=== PATIENT | female | born 1995 | race Caucasian/White ===

== ENCOUNTER → 2017-08-03 19:58 | Outpatient (CLI) | payer MEDICAID ==
[~2017-08-03 19:58] MED LIST: PRENAVITE1 TAB PO
[2017-08-03 21:12] LABS: APPEARANCE CLEAR (CLEAR); BILIRUBIN NEGATIVE (NEGATIVE); COLOR YELLOW (YELLOW); GLUCOSE NEGATIVE (NEGATIVE); KETONE NEGATIVE (NEGATIVE); NITRITE NEGATIVE (NEGATIVE); PROTEIN NEGATIVE (NEGATIVE); UROBILINOGEN NORMAL (NORMAL)
== END | disposition home or self-care (01) ==
LOC: D.LDO 19:58
PROVIDERS: Obstetrics & Gynecology
DX: O26.893 Other specified pregnancy related conditions, third trimester (principal); Z3A.37 37 weeks gestation of pregnancy; M54.9 Dorsalgia, unspecified

== ENCOUNTER → 2017-08-05 23:02 | Outpatient (CLI) | payer MEDICAID | END | disposition home or self-care (01) | LOC: D.LDO 23:02 | DX: O26.893 Other specified pregnancy related conditions, third trimester (principal); Z3A.37 37 weeks gestation of pregnancy ==

== ENCOUNTER 2017-08-14 20:01 | Outpatient (CLI) | payer MEDICAID ==
[2017-08-14] MEDS ORDERED: PRENAVITE1 TAB PO (20:12)
[2017-08-14 21:12] LABS: APPEARANCE HAZY (CLEAR); BILIRUBIN NEGATIVE (NEGATIVE); COLOR YELLOW (YELLOW); GLUCOSE NEGATIVE (NEGATIVE); KETONE NEGATIVE (NEGATIVE); NITRITE NEGATIVE (NEGATIVE); PH 7.5 (5.0-6.0); PROTEIN NEGATIVE (NEGATIVE); SPECIFIC GRAVITY 1.005 (1.005-1.020); UROBILINOGEN NORMAL (NORMAL)
[2017-08-14 21:15] LABS: BACTERIA MANY /hpf (NONE SEEN); HYALINE CAST RARE /lpf (NONE SEEN); RED CELLS - URINE 0-5 /hpf (0-5)
== END 2017-08-14 22:16 | disposition home or self-care (01) ==
LOC: D.LDO 20:01
PROVIDERS: Obstetrics & Gynecology
DX: O26.893 Other specified pregnancy related conditions, third trimester (principal); Z3A.38 38 weeks gestation of pregnancy; O36.8190 Decreased fetal movements, unspecified trimester, not applicable or unspecified

== ENCOUNTER → 2017-08-16 12:07 | Outpatient (CLI) | payer MEDICAID | END | disposition home or self-care (01) | LOC: D.LDO 12:07 | DX: O36.8130 Decreased fetal movements, third trimester, not applicable or unspecified (principal); Z3A.39 39 weeks gestation of pregnancy ==

== ENCOUNTER → 2017-08-19 12:18 | Outpatient (CLI) | payer MEDICAID | END | disposition home or self-care (01) | LOC: D.LDO 12:18 | DX: O36.8130 Decreased fetal movements, third trimester, not applicable or unspecified (principal); Z3A.39 39 weeks gestation of pregnancy ==

== ENCOUNTER → 2017-08-22 16:49 | Outpatient (CLI) | payer MEDICAID | END | disposition home or self-care (01) | LOC: D.LDO 16:49 | DX: O48.0 Post-term pregnancy (principal); Z3A.40 40 weeks gestation of pregnancy ==

== ENCOUNTER 2017-08-24 04:01 | Inpatient (IN) | payer MEDICAID ==
[~2017-08-24] VITALS: Ht 167.6 cm; Wt 78.5 kg
[2017-08-24 04:42] VITALS: BP 120/90; Ht 167.6 cm; Wt 78.5 kg
[2017-08-24 05:24] LABS: HEMATOCRIT 30.1 % (36.0-48.0); HEMOGLOBIN 9.2 g/dL (12-16); MCH 23.2 pg (26.0-34.0); MCHC 30.6 g/dL (31.0-37.0); MEAN PLATELET VOLUME 10.2 fL (7.4-10.4); RBC 3.96 10x6/uL (4.00-5.40); RDW 16.6 % (11.5-14.5); WBC 11.1 10x3/uL (4.8-10.8)
--- NOTE | 2017-08-24 14:32 | NUR ---
V/S ASSESSED ON INFANT PER THIS RN AT THIS TIME. PT AND FOB EDU ON KEEPING SWADDLED AND WARM. INFANT PLACED IN MOTHER'S ARMS AND BOTH COVERED. PT DENIES FURTHER NEEDS.
--- NOTE | 2017-08-24 15:05 | NUR ---
ICE PACK APPLIED TO PERINEUM, INFANT IN ARMS, DENIES NEEDS OR CONCERNS. FRIENDS/FAMILYN VISITING. C/L IN EASY REACH.
--- NOTE | 2017-08-24 15:15 | NUR ---
PT PROVIDED WITH TUCKS, EPIFOAM, AND DERMAPLAST SPRAY FOR PERICARE WHEN OOB TO VOID. INSTRUCTIONS GIVEN, PT VOICES UNDERSTANDING.
--- NOTE | 2017-08-24 16:10 | NUR ---
PT RESP EVEN AND UNLABORED, DENIES PAIN, ICE PACK IN PLACE TO PERINEUM. DENIES NEED TO VOID. PO FLUIDS GIVEN PER REQUEST. C/L IN EASY REACH.
--- NOTE | 2017-08-24 16:50 | NUR ---
PT OOB TO VOID, REINFORCED PERICARE AND USE OF TUCKS/DERMAPLAST. VOICES UNDERSTANDING OF TEACHING PROVIDED.
--- NOTE | 2017-08-24 16:52 | NUR ---
PT TRANSFERRED TO ROOM 1257 WITH PERSONAL BELONGINGS AND SO. ORIENTED TO ROOM AND TV. COLA PROVIDED UPON REQUEST. C/L IN EASY REACH.
--- NOTE | 2017-08-24 16:53 | NUR ---
PT TO ROOM 1257. EDU PT ON AMBULATION, PAIN MEDICATION AVAILABLE WHEN NEEDED, AND TO CONT PERICARE WITH BETADINE AND WATER AND TO PAT DRY DUE TO STITCHES IN PLACE. PT VERBALIZED UNDERSTANDING TO ALL. PT DENIES FURTHER NEEDS AND STATES "I'M JUST GOING TO WALK AROUND THE ROOM FOR A LITTLE WHILE. IT FEELS GOOD TO WALK." PT ASKS IF SHE CAN SIT ON COUCH, ADV PT THAT YES SHE CAN. PT DENIES FURTHER NEEDS. BED LOW, WHEELS LOCKED, CL IN REACH, SIDE RAILS UP X2.
--- NOTE | 2017-08-24 17:28 | NUR ---
PT RESTING IN BED, RESP EVEN AND UNLABORED, C/O LOW BACK AND ABDOMINAL CRAMPING TYPE PAIN, RATES 4 OUT OF 10 ON PAIN SCALE. MOTRIN PO GIVEN SCHEDULED, ENCOURAGED PO INTAKE. REPORTS HAS BEEN AMBULATORY IN ROOM, DENIES OTHER NEEDS AT THIS TIME, C/L IN EASY REACH, BED IN LOW POSITION, SR UP X2.
--- NOTE | 2017-08-24 18:05 | NUR ---
PT REPORTS PAIN 2 OUT OF 10 ON PAIN SCALE. FRESH ICED COLA PROVIDED UPON REQUEST AT THIS TIME. INFANT IN ARMS. NAD. C/L IN EASY REACH. NO OTHER NEEDS AT THIS TIME.
--- NOTE | 2017-08-24 18:05 | NUR ---
PT'S FOB TO NURSE DESK WITH REQUEST FOR "COKE" FOR PT. SAME PROVIDED PER Jerry ORTIZ RN.
[2017-08-24 19:10] VITALS: BP 111/67
--- NOTE | 2017-08-24 19:10 | NUR ---
PATIENT SITTING UP IN BED, AT BEDSIDE. FUNDUS FIRM,MIDLINE, AT THE U. BLEEDING SCANT. PERIPAD AND PANTIES IN PLACE. PT STATES THAT SHE HAS BEEN RUBBING HER STOMACH AND IT STAYS HARD. RESPIRATIONS EVEN AND NON LABORED. VITALS SIGNS WNL. TRAY TABLE AND CALL CARLISLE IN REACH. PT DENIES PAIN.
--- NOTE | 2017-08-24 20:30 | NUR ---
PATIENT SHOWERING, SOAP, WASHCLOTHES AND TOWELS PROVIDED. PT HAS PADS AND PANTIES, WILL WEAR HER OWN PAJAMAS. SIGNIFICANT OTHER REMAINS IN ROOM FOR ASSISTANCE. BLEEDING REMAINS SCANT.
--- NOTE | 2017-08-24 21:40 | NUR ---
PATIENT LAYING IN BED, INFANT IN CRIB AT BEDSIDE. REMAINS AT BEDSIDE. STATES THAT HER PAIN IS 4/10 IN HER BACK AND REQUESTS SOME PAIN MEDICATION. STATES THAT HER BLEEDING IS STILL LIGHT. DENIES OTHER NEEDS. CALL CARLISLE AND TRAY TABLE IN REACH, BED LOCKED IN LOW POSITION.
--- NOTE | 2017-08-24 21:41 | NUR ---
TYLENOL 3 TWO TABS PO AT THIS TIME PER MD ORDERS.
--- NOTE | 2017-08-24 21:56 | NUR ---
PATIENT SITTING UP IN BED, LAB AT BEDSIDE FOR RAPID HIV DRAW PER MD ORDERS. CYTOTEC 200 MCG PO ADMINISTERED AT THIS TIME. CALL CARLISLE AND TRAY TABLE IN REACH, BED LOCKED IN LOW POSITION. PT DENIES ANY NEEDS AT THIS TIME
--- NOTE | 2017-08-24 22:27 | OP ---
PATIENT NAME: RONALD MAGALLANES MEDICAL RECORD: [id number] :94 LOCATION:[id number] ADMISSION DATE:08/24/17 SURGEON: FADI WERNER MD DATE OF OPERATION: 08/24/2017 PREDELIVERY DIAGNOSIS: Active labor at term. POSTDELIVERY DIAGNOSIS: Mother delivered at term. PROCEDURE: Vaginal delivery. ATTENDING: Fadi Werner MD ANESTHETIC: Continuous lumbar epidural. FINDINGS: Viable male infant, RICARDO presentation, Apgars are 9 and 9, weight 3490 grams. Midline episiotomy cut with 3-0 chromic repair. Placenta spontaneous and intact. EBL: 350 cc. DISPOSITION: Mother and infant recovered in the room. TRANSINT:[id number] Voice Confirmation ID: [id number] DOCUMENT ID: [id number] FADI WERNER MD at 2227 CC: [id number] DICTATION DATE: 08/24/17 1014 MAINTENANCE INSTRUCTOR: 08/24/[address] [facility] [address] [place] [address]
--- NOTE | 2017-08-24 22:38 | NUR ---
PATIENT LAYING IN BED,NO DISTRESS NOTED. IN CRIB AT BEDSIDE. CALL CARLISLE AND TRAY TABLE IN REACH. PT INSTRUCTED TO CALL WITH ANY NEEDS.
[2017-08-24 22:47] LABS: HIV 1 & 2- RAPID SCREEN NEGATIVE (NEGATIVE)
--- NOTE | 2017-08-24 23:45 | NUR ---
INFANT TO ROOM FOR FEEDING AT THIS TIME. PATIENT DENIES ANY NEEDS.
--- NOTE | 2017-08-25 00:13 | NUR ---
PATIENT TRANSFERRED TO ROOM 1273. VS DONE. FUNDUS FIRM AND AT UMBILICUS. LOCHIA RUBRA AND SCANT. PATIENT DENIES PAIN AT THIS TIME. PATIENT ORIENTED TO ROOM AND CALL SYSTEM. BED IN LOW POSITION, SIDE RAILS UP X 2, CALL LIGHT WITHIN REACH. SIGNIFICANT OTHER AT BEDSIDE, REMAINS ATTENTIVE AND SUPPORTIVE OF PT NEEDS. NB REMAINS IN NBN. PATIENT DENIES ANY NEEDS OR CONCERNS.
--- NOTE | 2017-08-25 01:54 | NUR ---
PATIENT RESTING QUIETLY IN BED, IN DADS ARMS. CALL CARILSLE AND TRAY TABLE IN REACH. PT INSTRUCTED TO CALL WITH ANY NEEDS.
[2017-08-25 02:27] VITALS: BP 107/66
--- NOTE | 2017-08-25 02:27 | NUR ---
PATIENT RESTING IN BED, EASILY AROUSED TO VERBAL. VS TAKEN AND ICE WATER PROVIDED PER PT REQUEST. MOTRIN GIVEN PER MD ORDERS, SEE MAR. PT RATES PAIN 3/10 TO HER BACK. CALL CARLISLE AND TRAY TABLE IN REACH. INFANT REMAINS IN ROOM IN DADS ARMS AT THIS TIME. NO FURTHER NEEDS IDENTIFIED. PT ENCOURAGED TO CALL WITH ANY NEEDS. PT VERBALIZES UNDERSTANDING.
--- NOTE | 2017-08-25 02:30 | NUR ---
VITAL SIGNS TAKEN, WNL. FUNDUS REMAINS FIRM, BLEEDING SCANT. MOTRIN GIVEN PER MD ORDERS. SEE MAR.PT STATES THAT SHE HAS BACK PAIN 11/26. CALL CARLISLE AND TRAY TABLE IN REACH. ICE WATER PROVIDED PER PT REQUEST. PT DENIES OTHER NEEDS AT THIS TIME. INSTRUCTED TO CALL WITH ANY NEEDS.PT VERBALIZES UNDERSTANDING.
--- NOTE | 2017-08-25 02:44 | NUR ---
MARV HULL, BELLOWS FILLER BROUGHT UP TYLENOL #3 PRN MEDICATION FOR PATIENT. PATIENT RATES PAIN 02/26. PRN TYLENOL #3 ADMINISTERED PO. SIDE RAILS UP X 2, BED IN LOW POSITION, CALL LIGHT WITHIN REACH. MOTHER HOLDING INFANT AT THIS TIME. SIGNIFICANT OTHER AT BEDSIDE, SUPPORTIVE AND ATTENTIVE TO PT NEEDS. PATIENT DENIES ANY FURTHER NEEDS AT THIS TIME.
--- NOTE | 2017-08-25 03:45 | NUR ---
PATIENT SITTING UP ON COUCH. FATHER OF THE BABY CHANGING BABIES DIAPER. DENIES NEEDS OR PAIN AT THIS TIME. STATES THAT HER FEET FEEL A LITTLE SWOLLEN. NO VISUAL SWELLING NOTED AT THIS TIME. PT WITH FEET PROPPED UP AND ENCOURAGED TO KEEP THEM THERE IF THEY FEEL SWOLLEN. CALL CARLISLE AND TRAY TABLE IN REACH. PT INSTRUCTED TO CALL WITH ANY NEEDS.
[2017-08-25 06:15] LABS: RAPID PLASMA REAGIN Non Reactive (Non Reactive)
--- NOTE | 2017-08-25 07:00 | NUR ---
REPORT GIVEN TO AM SHIFT TO ASSUME PATIENT CARE.
[2017-08-25 08:00] VITALS: BP 109/70
--- NOTE | 2017-08-25 08:00 | NUR ---
AM ASSSESSMENT COMPLETED CHARTED ON FLOWSHEET ALONG WITH VITAL SIGNS. PT SITTING ON SIDE OF BED EATING BREAKFAST WITH INFANT IN CRIB AT BEDSIDE. RATES PAIN AT 4/10 AND REQUEST PAIN MED IF POSSIBLE. DENIES CLOTS WITH VOIDS WITH ASKED AND STATES HER BLEEDING IS LESS THAN HER PERIOD. CALL LIGHT IN REACH AND WHITEBOARD IN ROOM UPDATED.
--- NOTE | 2017-08-25 08:30 | NUR ---
PAIN MED GIVEN CHARTED ON EMAR. ADDITIONAL WAQAR PAD/PANTIES PLACED IN BATHROOM PER PT REQUEST. SALINE LOCK FROM LEFT AC REMOVED WITH CATH INTACT. LARGE ICE WITH APPLE JUICE ALSO PROVIDED PER PT REQUEST.
--- NOTE | 2017-08-25 11:00 | NUR ---
PT AND SIG OTHER AMB TO UNIT DESK THAN TO NURSERY AND BACK TO ROOM WITH INFANT. PT STATES THAT SHE FEELS "MUCH BETTER" AND DENIES ANY NEEDS.
--- NOTE | 2017-08-25 12:30 | NUR ---
LARGE CUP OF ICE PER REQUEST. PT QUESTIONS ABOUT DISCHARGE PROVIDED HER WITH NUMBER TO CALL NURSERY TO ANSWER THESE QUESTIONS. TALKED WITH HER AND SPOUSE ABOUT ROOMING IN IF IS NOT DISCHARGED AND PT CONTINUE TO TALK ABOUT GOING HOME WITH BABY TODAY. WILL CONTINUE TO PROVIDE TEACHING IN THIS MATTER.
--- NOTE | 2017-08-25 14:50 | NUR ---
PT SITTING ON COUCH HOLDING . LARGE CUP OF ICE WITH APPLE JUICE AND HAND LOTION PROVIDED TO HER PER HER REQUEST. NURSERY NURSE IN ROOM FOR INFANT ASSESSMENT. PT RATES HER PAIN AT 1/10 AND DENIES ANY NEEDS.
--- NOTE | 2017-08-25 16:00 | NUR ---
Pt sitting on couch with . Small cup of ice water per request.
--- NOTE | 2017-08-25 18:45 | NUR ---
report to 7p-7a
--- NOTE | 2017-08-25 19:00 | NUR ---
PATIENT REPORT RECIEVED FROM AM SHIFT TO ASSUME PT CARE. PATIENT IS TO BE DISCHARGED TO ROOMING IN STATUS.
--- NOTE | 2017-08-25 19:23 | NUR ---
DR PARR CALLED AND GIVEN PT REPORT TO INCLUDE DR KELLER DISCHARGE SUMMARY THIS MORNING AT 0730 BUT NO DISCHARGE ORDER. NEW ORDER NOTED TO DISCHARGE TO ROOMING IN STATUS.
--- NOTE | 2017-08-25 19:27 | NUR ---
PATIENT FILLING OUT ROOMING IN PAPERWORK, CELL PHONE NUMBER AND CODE WORD PROVIDED FOR NURSERY. PARENTS VERBLAIZE UNDERSTANDING OF ROOMING IN POLICY.
--- NOTE | 2017-08-25 19:32 | NUR ---
DISCHARGE INSTRUCTIONS REVIEWED WITH PATIENT AND SIGNIFICANT OTHER.ALL QUESTIONS ANSWERED AND BOTH VERBALIZE UNDERSTANDING AT THIS TIME. PAPER COPY PROVIDED.
== END 2017-08-25 19:35 | disposition home or self-care (01) | DRG 775 ==
LOC: D.LD 04:01
PROVIDERS: Obstetrics & Gynecology; ADMIT Obstetrics & Gynecology
PROC: 10E0XZZ Delivery of Products of Conception, External Approach (ICD-10-PCS; principal; 2017-08-24)
PROC: 0W8NXZZ Division of Female Perineum, External Approach (ICD-10-PCS; 2017-08-24)
DX: O99.824 Streptococcus B carrier state complicating childbirth (principal); Z3A.40 40 weeks gestation of pregnancy; Z37.0 Single live birth; Z87.891 Personal history of nicotine dependence; O99.344 Other mental disorders complicating childbirth; F41.8 Other specified anxiety disorders

== ENCOUNTER 2019-02-04 20:53 | Emergency (ER) | payer MEDICAID ==
[~2019-02-04] VITALS: Ht 167.6 cm; Wt 59.1 kg
[2019-02-04 21:03] VITALS: Ht 167.6 cm; Wt 59.1 kg
[2019-02-04] MEDS ORDERED: TORADOL10 MG PO (21:55)
[2019-02-04 22:08] VITALS: BP 128/75
== END 2019-02-04 22:09 | disposition home or self-care (01) ==
LOC: D.ER 20:53
DX: S93.491A Sprain of other ligament of right ankle, initial encounter (principal); W10.9XXA Fall (on) (from) unspecified stairs and steps, initial encounter; Y92.019 Unspecified place in single-family (private) house as the place of occurrence of the external cause

== ENCOUNTER 2019-02-18 18:47 | Emergency (ER) | payer MEDICAID ==
[~2019-02-18 18:47] MED LIST changes: +TORADOL10 MG PO
[2019-02-18 19:03] VITALS: BMI 25.8
[2019-02-18] MEDS ORDERED: VOLTAREN75 MG PO (19:36)
[2019-02-18 19:49] VITALS: BP 110/73
== END 2019-02-18 19:49 | disposition home or self-care (01) ==
LOC: D.ER 18:47
DX: M77.9 Enthesopathy, unspecified (principal)

== ENCOUNTER 2019-03-20 21:11 | Emergency (ER) | payer MEDICAID ==
[~2019-03-20] VITALS: Ht 167.6 cm; Wt 75.9 kg
[~2019-03-20 21:11] MED LIST changes: +VOLTAREN75 MG PO
[2019-03-20 21:23] VITALS: BP 101/71; Ht 167.6 cm; Wt 75.9 kg
[2019-03-20] MEDS ORDERED: CENTRUM SILVER1 EAC3 PO (21:25)
[2019-03-20] MEDS ORDERED: DICLOFENAC SODI50 MG PO (22:16)
== END 2019-03-20 22:27 | disposition home or self-care (01) ==
LOC: D.ER 21:11
DX: S93.401A Sprain of unspecified ligament of right ankle, initial encounter (principal); X50.1XXA Overexertion from prolonged static or awkward postures, initial encounter; Y93.89 Activity, other specified; Y92.89 Other specified places as the place of occurrence of the external cause

== ENCOUNTER 2019-06-23 20:39 | Emergency (ER) | payer MEDICAID ==
[~2019-06-23] VITALS: Ht 167.6 cm; Wt 74.5 kg
[~2019-06-23 20:39] MED LIST changes: +CENTRUM SILVER1 EAC3 PO; +DICLOFENAC SODI50 MG PO
[2019-06-23 21:05] VITALS: Ht 167.6 cm; Wt 74.5 kg
[2019-06-23] MEDS ORDERED: BENTYL10 MG PO (21:07)
[2019-06-23] MEDS ORDERED: LOMOTIL 2.5-0.1 EAC1 PO (21:08)
[2019-06-23] MEDS ORDERED: BUSPAR5 MG PO (21:08)
[2019-06-23 21:26] LABS: BASOPHILS 0.2 % (0-2); EOSINOPHILS 3.3 % (0-7); HEMATOCRIT 37.9 % (36.0-48.0); HEMOGLOBIN 11.8 g/dL (12-16); IMMATURE GRANULOCYTES 0.5 % (0-5); LYMPHOCYTES 23.6 % (15-50); MCH 26.2 pg (26.0-34.0); MCHC 31.1 g/dL (31.0-37.0); MCV 84.2 fL (80.0-100.0); MEAN PLATELET VOLUME 8.7 fL (7.4-10.4); MONOCYTES 5.4 % (2-11); RDW 15.2 % (11.5-14.5); WBC 16.8 10x3/uL (4.8-10.8)
[2019-06-23 21:27] LABS: APPEARANCE CLEAR (CLEAR); BILIRUBIN NEGATIVE (NEGATIVE); COLOR STRAW (YELLOW); GLUCOSE NEGATIVE (NEGATIVE); KETONE NEGATIVE (NEGATIVE); NITRITE NEGATIVE (NEGATIVE); PLATELET COUNT 371 10x3/uL (130-400); PROTEIN NEGATIVE (NEGATIVE); SPECIFIC GRAVITY 1.015 (1.005-1.020); UROBILINOGEN NORMAL (NORMAL)
[2019-06-23 21:29] LABS: BACTERIA FEW /hpf (NEGATIVE); HCG URINE NEGATIVE (NEGATIVE); RED CELLS - URINE RARE /hpf (0-5); WHITE CELLS - URINE 0-5 /hpf (NEGATIVE)
[2019-06-23 21:47] LABS: ALBUMIN 3.5 g/dL (3.4-5.0); ALKALINE PHOSPHATASE 81 U/L (46-116); ALT (SGPT) 16 U/L (10-68); AMYLASE - SERUM 42 U/L (25-115); CALC OSMOLALITY 281 mosm/kg (275-300); CALCIUM 8.2 mg/dL (8.5-10.1); CARBON DIOXIDE 27.9 mmol/L (21.0-32.0); CHLORIDE - SERUM 107 mmol/L (98-107); CREATININE - SERUM 0.8 mg/dL (0.6-1.3); GLUCOSE 104 mg/dL (74-106); LIPASE 216 U/L (73-393); POTASSIUM - SERUM 3.7 mmol/L (3.5-5.1); PROTEIN - SERUM 7.7 g/dL (6.4-8.2); SODIUM 142 mmol/L (136-145); UREA NITROGEN 9 mg/dL (7-18); eGFR NON AFRICAN AMERICAN > 90 mL/min (90-120)
[2019-06-23] MEDS ORDERED: CLEOCIN HCL300 MG PO (22:26)
[2019-06-23 23:00] VITALS: BP 132/81
== END 2019-06-23 23:03 | disposition home or self-care (01) ==
LOC: D.ER 20:39
PROVIDERS: Family Medicine
DX: J02.0 Streptococcal pharyngitis (principal)

== ENCOUNTER 2020-05-27 20:54 | Emergency (ER) | payer OTHER ==
[~2020-05-27] VITALS: Ht 167.6 cm; Wt 81.8 kg
[~2020-05-27 20:54] MED LIST changes: +BENTYL10 MG PO; +BUSPAR5 MG PO; +CLEOCIN HCL300 MG PO; +LOMOTIL 2.5-0.1 EAC1 PO
[2020-05-27 21:07] VITALS: Ht 167.6 cm; Wt 81.8 kg
[2020-05-27 22:47] VITALS: BP 128/72
== END 2020-05-27 22:47 | disposition home or self-care (01) ==
LOC: D.ER 20:54
DX: S20.229A Contusion of unspecified back wall of thorax, initial encounter (principal); X58.XXXA Exposure to other specified factors, initial encounter; Y93.11 Activity, swimming; M54.9 Dorsalgia, unspecified; R51 Headache

== ENCOUNTER 2020-06-03 18:57 | Emergency (ER) | payer MEDICAID ==
[~2020-06-03] VITALS: Ht 167.6 cm; Wt 84.8 kg
[2020-06-03 20:04] VITALS: Ht 167.6 cm; Wt 84.8 kg
[2020-06-03 20:58] LABS: BASOPHILS 0.3 % (0-2); EOSINOPHILS 3.6 % (0-7); HEMATOCRIT 34.6 % (36.0-48.0); HEMOGLOBIN 10.5 g/dL (12-16); IMMATURE GRANULOCYTES 0.3 % (0-5); LYMPHOCYTES 27.6 % (15-50); MCH 23.9 pg (26.0-34.0); MCHC 30.3 g/dL (31.0-37.0); MCV 78.8 fL (80.0-100.0); MEAN PLATELET VOLUME 8.6 fL (7.4-10.4); MONOCYTES 6.9 % (2-11); NEUTROPHILS 61.3 % (40-80); PLATELET COUNT 424 10x3/uL (130-400); RBC 4.39 10x6/uL (4.00-5.40); RDW 16.4 % (11.5-14.5); WBC 12.5 10x3/uL (4.8-10.8)
[2020-06-03 21:00] LABS: CALC OSMOLALITY 273 mosm/kg (275-300); CALCIUM 8.4 mg/dL (8.5-10.1); CARBON DIOXIDE 27.3 mmol/L (21.0-32.0); CHLORIDE - SERUM 107 mmol/L (98-107); CREATININE - SERUM 0.9 mg/dL (0.6-1.3); GLUCOSE 99 mg/dL (74-106); POTASSIUM - SERUM 3.4 mmol/L (3.5-5.1); SODIUM 138 mmol/L (136-145); UREA NITROGEN 7 mg/dL (7-18); eGFR NON AFRICAN AMERICAN 81 mL/min (90-120)
[2020-06-03 21:04] LABS: BILIRUBIN NEGATIVE (NEGATIVE); KETONE NEGATIVE (NEGATIVE); NITRITE NEGATIVE (NEGATIVE); UROBILINOGEN NORMAL mg/dL (< 2)
[2020-06-03 21:06] LABS: ALBUMIN 3.4 g/dL (3.4-5.0); ALKALINE PHOSPHATASE 71 U/L (30-120); ALT (SGPT) 30 U/L (10-68); BACTERIA MANY /HPF (NONE SEEN); BILIRUBIN - TOTAL 0.21 mg/dL (0.2-1.3); PROTEIN - SERUM 7.4 g/dL (6.4-8.2)
[2020-06-03] MEDS ORDERED: CIPRO250 MG PO (22:19)
[2020-06-03 23:20] VITALS: BP 112/76
== END 2020-06-03 23:20 | disposition home or self-care (01) ==
LOC: D.ER 18:57
PROVIDERS: Emergency Medicine
DX: N39.0 Urinary tract infection, site not specified (principal); J45.909 Unspecified asthma, uncomplicated

== ENCOUNTER 2020-07-01 04:03 | Emergency (ER) | payer MEDICAID ==
[~2020-07-01] VITALS: Ht 167.6 cm; Wt 89.1 kg
[~2020-07-01 04:03] MED LIST changes: +CIPRO250 MG PO
[2020-07-01 04:30] VITALS: Ht 167.6 cm; Wt 89.1 kg
[2020-07-01] MEDS ORDERED: ZYPREXA5 MG PO (04:32)
[2020-07-01] MEDS ORDERED: VALIUM 2 MG TAB2 MG PO (04:32)
[2020-07-01] MEDS ORDERED: HYDROCHLOROTH12.5 M1 PO (04:33)
[2020-07-01] MEDS ORDERED: SINGULAIR10 MG PO (04:33)
[2020-07-01] MEDS ORDERED: PROPRANOLOL HCL20 MG PO (04:33)
[2020-07-01] MEDS ORDERED: MECLIZINE HCL25 MG PO (05:47)
[2020-07-01 06:04] VITALS: BP 132/78
== END 2020-07-01 06:04 | disposition home or self-care (01) ==
LOC: D.ER 04:03
DX: H81.09 Meniere's disease, unspecified ear (principal); R42 Dizziness and giddiness